=== PATIENT | male | born 1975 | race Two or more races ===

== ENCOUNTER 2024-01-07 07:14 | Inpatient (IN) | payer MEDICAID, OTHER ==
[~2024-01-07] VITALS: Ht 167.6 cm; Wt 108.2 kg
[2024-01-07 08:20] LABS: Basophils # (auto) 0.1 10 ^3/uL (0-0.2); Basophils % (auto) 0.7 % (0.0-2.0); Eosinophils # (auto) 0.2 10 ^3/uL (0-0.8); Eosinophils % (auto) 1.6 % (0.0-7.0); Hematocrit 46.4 % (41.0-53.0); Lymphocytes # (auto) 3.3 10 ^3/uL (0.4-5.4); Lymphocytes % (auto) 32.7 % (10.0-50.0); Mean Corpuscular Hemoglobin 29.6 pg (28.0-32.0); Mean Corpuscular Hgb Conc. 34.4 g/dL (32.0-36.0); Mean Corpuscular Volume 86.1 fL (80.0-100.0); Monocytes # (auto) 0.6 10 ^3/uL (0-1.3); Monocytes % (auto) 6.2 % (0.0-12.0); Neutrophils % (auto) 58.8 % (37.0-80.0); Platelet Count (auto) 278 10^3/uL (140-450); Red Blood Cells 5.39 10^6/uL (4.5-5.90); Red Cell Distribution Width 13.2 % (11.8-14.3); White Blood Cell 10.2 10^3/uL (4.4-10.8)
[2024-01-07 08:57] LABS: Chloride 104 mmol/L (98-107); Potassium 4.2 mmol/L (3.5-5.1); Sodium 136 mmol/L (136-145)
[2024-01-07 08:58] LABS: Anion Gap 4 (5-15); Calcium 9.6 mg/dL (8.7-10.4); Carbon Dioxide 28 mmol/L (20-30)
[2024-01-07 09:03] LABS: Blood Urea Nitrogen 11 mg/dL (9-23); Glucose 239 mg/dL (74-106); Lipase 62 U/L (12-53)
[2024-01-07 09:21] VITALS: O2SAT 98
[2024-01-07 09:26] LABS: BUN/Creatinine Ratio 12.2 (10.0-20.0)
[2024-01-07] MEDS: SODIUM CHLORIDE 0.9% 1,000 ML IV ONE ×2 (10:17→11:02)
[2024-01-07] MEDS: ONDANSETRON HCL 4 MG/2 ML VIAL IV ONE (11:04)
[2024-01-07] MEDS: MORPHINE SULFATE INJ 2 MG/ml SYRG IV ONE (11:05)
[2024-01-07 11:50] LABS: Alkaline Phosphatase 125 U/L (46-116)
[2024-01-07 11:51] LABS: Alanine Aminotransferase 56 U/L (7-40); Albumin 4.7 g/dL (3.2-4.8); Aspartate Aminotransferase 17 U/L (13-40); Bilirubin, Total 0.5 mg/dL (0.2-1.0); Total Protein 8.4 g/dL (5.7-8.2)
[2024-01-07] MEDS ORDERED: DOCUSATE SOD 100 MG CAP PO PRN (12:30)
[2024-01-07] MEDS ORDERED: hydrALAZINE HCL 20 MG/ML VL IV PRN (12:30)
[2024-01-07] MEDS ORDERED: HYDROmorphone HCL 2 MG/ML VL/or syr IV PRN (12:30)
[2024-01-07] MEDS ORDERED: HYDROcodone-ACET 5/325MG TAB PO PRN (12:30)
[2024-01-07] MEDS ORDERED: ACETAMINOPHEN 325 MG TAB PO PRN (12:30)
[2024-01-07] MEDS ORDERED: ONDANSETRON HCL 4 MG/2 ML VIAL IV PRN (12:30)
[2024-01-07] MEDS ORDERED: D5W/LACTATED RINGERS 1,000 ML IV SCH (13:00)
[2024-01-07] MEDS ORDERED: DEXTROSE (50%) 50ML SYRG IV PRN (13:00)
[2024-01-07] MEDS: PANTOPRAZOLE 40 MG/10 ML VIAL INJ IV SCH (13:20)
[2024-01-07 13:50] LABS: Magnesium 1.9 mg/dL (1.6-2.6)
[2024-01-07] MEDS: SODIUM CHLOR 0.9% PF (SALINE LOCK) 10ML VIAL/SYR IV SCH (14:00)
[2024-01-07] MEDS ORDERED: GABA-1250 PO (18:29)
[2024-01-07] MEDS ORDERED: MAGN241.4 PO (18:29)
[2024-01-07] MEDS ORDERED: CHOL20002 PO (18:29)
[2024-01-07] MEDS ORDERED: ATOR20TA50 PO (18:29)
[2024-01-07] MEDS ORDERED: SEMA2INJ3 SC (18:29)
[2024-01-07] MEDS ORDERED: IBUP-1455 PO (18:29)
[2024-01-07] MEDS ORDERED: METF-372 PO (18:29)
[2024-01-07] MEDS ORDERED: [UNRECOGNIZED DRUG - CODE] (18:29)
[2024-01-07 18:30] VITALS: BP 125/83; PULSE 77; RESP 16; TEMP 97.7; O2SAT 95
[2024-01-07] MEDS: ACCU-CHEK COMFORT CURVE STRIP VI SCH (18:36)
[2024-01-07] MEDS: InsuLIN REG 1unit/0.01ml Soln (100units/ml) SC SCH (18:38)
[2024-01-07] MEDS: D5W/LACTATED RINGERS 1,000 ML IV SCH (18:40)
[2024-01-07 20:00] VITALS: PULSE 78; RESP 19; O2SAT 97
[2024-01-07 22:00] VITALS: BP 120/85; PULSE 78; RESP 19; TEMP 97.8; O2SAT 97
[2024-01-08 01:00] VITALS: BP 114/81; PULSE 77; RESP 19; TEMP 97.8; O2SAT 98
[2024-01-08 05:00] VITALS: BP 107/66; PULSE 72; RESP 19; TEMP 97.8; O2SAT 96
[2024-01-08 07:24] LABS: Basophils # (auto) 0.1 10 ^3/uL (0-0.2); Basophils % (auto) 0.8 % (0.0-2.0); Eosinophils # (auto) 0.1 10 ^3/uL (0-0.8); Eosinophils % (auto) 1.4 % (0.0-7.0); Hematocrit 41.4 % (41.0-53.0); Hemoglobin 14.1 g/dL (13.5-17.5); Lymphocytes % (auto) 30.8 % (10.0-50.0); Mean Corpuscular Hemoglobin 29.4 pg (28.0-32.0); Mean Corpuscular Hgb Conc. 34.2 g/dL (32.0-36.0); Monocytes # (auto) 0.6 10 ^3/uL (0-1.3); Monocytes % (auto) 6.6 % (0.0-12.0); Neutrophils # (auto) 5.9 10 ^3/uL (1.6-8.6); Neutrophils % (auto) 60.4 % (37.0-80.0); Nucleated Red Blood Cells % 0.3 %; Platelet Count (auto) 246 10^3/uL (140-450); Red Blood Cells 4.81 10^6/uL (4.5-5.90); Red Cell Distribution Width 13.4 % (11.8-14.3); White Blood Cell 9.8 10^3/uL (4.4-10.8)
[2024-01-08 07:47] LABS: Alanine Aminotransferase 48 U/L (7-40); Albumin 3.8 g/dL (3.2-4.8); Alkaline Phosphatase 109 U/L (46-116); Anion Gap 4 (5-15); Aspartate Aminotransferase 15 U/L (13-40); BUN/Creatinine Ratio 10.4 (10.0-20.0); Bilirubin, Total 0.7 mg/dL (0.2-1.0); Blood Urea Nitrogen 7 mg/dL (9-23); Calcium 9.1 mg/dL (8.7-10.4); Carbon Dioxide 25 mmol/L (20-30); Chloride 108 mmol/L (98-107); Cholesterol 152 mg/dL (< 200); Glucose 147 mg/dL (74-106); HDL Cholesterol 33 mg/dL (40-59); LDL Cholesterol 97 mg/dL (< 100); Magnesium 1.9 mg/dL (1.6-2.6); Potassium 3.8 mmol/L (3.5-5.1); Sodium 137 mmol/L (136-145); Triglycerides 210 mg/dL (< 150)
[2024-01-08 09:00] VITALS: BP 111/76; PULSE 70; RESP 20; TEMP 97.9; O2SAT 97
[2024-01-08] MEDS: ENOXAPARIN SOD 40 MG/0.4 ML SYRINGE SC SCH (10:02)
[2024-01-08] MEDS ORDERED: LEVO500T91 PO ×2 (12:42→20:18)
[2024-01-08] MEDS ORDERED: ZOFR4T PO ×2 (12:42→20:18)
[2024-01-08 13:00] VITALS: BP 131/90; PULSE 70; RESP 20; TEMP 98.4; O2SAT 96
[2024-01-08] MEDS: metroNIDAZOLE 500MG/100ML 100 ML IV SCH (14:00)
[2024-01-08 14:56] VITALS: BP 116/74; PULSE 72; RESP 16; TEMP 98.4; O2SAT 99
[2024-01-09 08:43] LABS: Hepatitis B Surface Antigen Negative (Negative)
[2024-01-09 09:04] LABS: Hepatitis C Antibody Negative (Negative)
[2024-01-09] MEDS ORDERED: levoFLOXacin 500MG 100 ML IV SCH (10:00)
== END 2024-01-08 16:45 | disposition home or self-care (01) | DRG 241 ==
LOC: ER 07:14 → OVERFLOW 12:17 → WEST WING 18:23
PROVIDERS: ADMIT Internal Medicine; ATTEND Internal Medicine
DX: K29.70 Gastritis, unspecified, without bleeding (principal); I10 Essential (primary) hypertension; K21.9 Gastro-esophageal reflux disease without esophagitis; K52.9 Noninfective gastroenteritis and colitis, unspecified; R73.9 Hyperglycemia, unspecified
CPT/HCPCS: 36415; 74018; 74176; 80053; 80061; 82962; 82977; 83036; 83605; 83690; 83735; 85025; 86803; 87340; G0378; J1815; J2405; J2470; J3490